=== PATIENT | female | born 1990 | race Caucasian/White ===

== ENCOUNTER 2018-03-15 17:50 | Emergency (ER) | payer SELFPAY ==
[~2018-03-15] VITALS: Ht 172.7 cm; Wt 70.3 kg
[~2018-03-15 17:50] MED LIST: TRAZODONE HCL50 MG PO; VYVANSE40 MG PO
[2018-03-15 18:07] VITALS: BP 111/74
[2018-03-15] MEDS ORDERED: Lidocaine 2% Visc 15ml soln ORAL ONE (18:15)
[2018-03-15] MEDS ORDERED: Mylanta II UD 30ml ORAL ONE (18:15)
[2018-03-15] MEDS ORDERED: Dicyclomine HCl 10mg/5ml oral soln ORAL ONE (18:15)
[2018-03-15 18:35] LABS: APPEARANCE,URINE CLEAR; BILIRUBIN, URINE NEGATIVE (NEGATIVE); COLOR,URINE PALE YELLOW; GLUCOSE, URINE (UA) NEGATIVE (NEGATIVE); KETONES,URINE NEGATIVE (NEGATIVE); LEUKOCYTE ESTERASE ,URINE NEGATIVE (NEGATIVE); NITRITE,URINE NEGATIVE (NEGATIVE); PH,URINE 8 (4.5-8.0); PROTEIN,URINE NEGATIVE (NEGATIVE); UROBILINOGEN,URINE NORMAL MG/DL (0.0-1.0)
[2018-03-15 19:19] LABS: EOSINOPHILS % (AUTO) 2.2 % (0.0-3.0); HEMATOCRIT 36.9 % (37.0-47.0); HEMOGLOBIN 12.1 G/DL (12.0-16.0); LYMPHOCYTES % (AUTO) 22.2 % (20.0-45.0); MEAN CORPUSCULAR VOLUME 94 FL (80-99); MONOCYTES % (AUTO) 8.1 % (1.0-10.0); NEUTROPHILS % (AUTO) 66.5 % (45.0-75.0); PLATELET COUNT 379 K/UL (150-450); RED BLOOD COUNT 3.92 M/UL (4.20-5.40); RED CELL DISTRIBUTION WIDTH 12.5 % (11.6-14.8)
[2018-03-15 19:42] LABS: ANION GAP 8 mmol/L (5-15); BLOOD UREA NITROGEN 9 mg/dL (7-18); CALCIUM 9.8 MG/DL (8.5-10.1); CARBON DIOXIDE 26 MMOL/L (21-32); CHLORIDE 106 MMOL/L (98-107); CREATININE 0.7 MG/DL (0.55-1.30); POTASSIUM 4.5 MMOL/L (3.5-5.1); SODIUM 139 MMOL/L (136-145)
[2018-03-15 19:46] LABS: ALANINE AMINOTRANSFERASE 26 U/L (12-78); ALBUMIN 3.7 G/DL (3.4-5.0); ALBUMIN/GLOBULIN RATIO 1.1 (1.0-2.7); ALKALINE PHOSPHATASE 83 U/L (46-116); ASPARTATE AMINO TRANSFERASE 17 U/L (15-37); BILIRUBIN,TOTAL 0.2 MG/DL (0.2-1.0)
[2018-03-15] MEDS ORDERED: PRILOSEC OTC20 MG ORAL (19:50)
--- NOTE | 2018-03-15 19:50 | Emergency Room Report ---
History of Present Illness General Chief Complaint: Abdominal Pain Source: Patient Present Illness HPI This is a 27-year-old who presents to the ER with epigastric pain for the past one day. Patient states that she thinks that she is due to her abdominal pain. The patient states that she has a regular periods and that her LMP was one month ago however she is quite physically able to have missed a month due to her regular menses. Patient states that there is no modifying factors and has not taken medication for her symptoms. Patient denies any nausea, vomiting, diarrhea, vaginal bleeding, sore throat, fever. Patient does state that she does have some acid reflux. Allergies: Coded Allergies: PENICILLINS (Verified Allergy, 01/19/13) Patient History Past Medical History: see triage record Past Surgical History: none Pertinent Family History: none Now: No : 0 Para: 0 Immunizations: UTD Reviewed Nursing Documentation: PMH: Agreed; PSxH: Agreed Nursing Documentation-PMH Past Medical History: No Stated History Review of Systems All Other Systems: negative except mentioned in HPI Physical Exam Vital Signs Date Time Temp Pulse Resp B/P (MAP) Pulse Ox O2 Delivery O2 Flow Rate FiO2 03/15/18 17:57 97.4 106 20 111/74 99 Room Air 97.3 Sp02 EP Interpretation: reviewed, normal General Appearance: no apparent distress, alert, GCS 15, non-toxic Head: normocephalic, atraumatic Eyes: bilateral eye normal inspection, bilateral eye PERRL ENT: hearing grossly normal, normal pharynx, no angioedema, normal voice Neck: full range of motion, supple/symm/no masses Respiratory: chest non-tender, lungs clear, normal breath sounds, speaking full sentences Cardiovascular #1: regular rate, rhythm, no edema Gastrointestinal: normal bowel sounds, soft, non-distended, no guarding, no rebound, tenderness - LUQ Genitourinary: no CVA tenderness Musculoskeletal: gait/station normal Neurologic: alert, oriented x3, responsive, motor strength/tone normal, sensory intact, speech normal Psychiatric: judgement/insight normal, memory normal, mood/affect normal, no suicidal/homicidal ideation Skin: normal color, no rash, warm/dry, well hydrated Medical Decision Making PA Attestation Dr. Posey my supervising physician with whom patient management has been discussed with. Diagnostic Impression: Primary Impression: Gastritis ER Course Pt. presents to the ED c/o abdominal pain. The patient was pleasant on exam however she was very combative and declined wanting any excessive workup stating that she does want to know she was . Patient states that she wanted UA hCG from the blood because she'll follow up if she is . Patient had left upper quadrant pain and I ordered a GI cocktail and some fluids for her but the patient declined and asked with IV debris removed. Patient stated that she went outside to call the phone several times and was combative with staff. Once the result came back negative the patient states she had a leave because she wanted to go to a meeting. Ddx considered but are not limited to viral syndrome, , appendicitis, diverticulitis, constipation, gastroenteritis, abdominal hernia, pancreatitis, cholecystitis, nephrolithiasis, and ovarian torsion. Vital signs: are WNL, pt. is afebrile H&PE are most consistent with gastritis ORDERS: CBC, CMP, UA and HCG negative. ED INTERVENTIONS: Patient declined GI cocktail and IV hydration DISCHARGE: At this time pt. is stable for d/c to home. Will provide printed patient care instructions, and any necessary prescriptions. Care plan and follow up instructions have been discussed with the patient prior to discharge. Laboratory Tests Test 03/15/18 18:13 03/15/18 18:25 Urine Color Pale yellow Urine Appearance Clear Urine pH 8 (4.5-8.0) Urine Specific Steele 1.015 (1.005-1.035) Urine Protein Negative (NEGATIVE) Urine Glucose (UA) Negative (NEGATIVE) Urine Ketones Negative (NEGATIVE) Urine Occult Blood Negative (NEGATIVE) Urine Nitrite Negative (NEGATIVE) Urine Bilirubin Negative (NEGATIVE) Urine Urobilinogen Normal MG/DL (0.0-1.0) Urine Leukocyte Esterase Negative (NEGATIVE) Urine HCG, Qualitative Negative (NEGATIVE) White Blood Count 12.0 K/UL (4.8-10.8) H Red Blood Count 3.92 M/UL (4.20-5.40) L Hemoglobin 12.1 G/DL (12.0-16.0) Hematocrit 36.9 % (37.0-47.0) L Mean Corpuscular Volume 94 FL (80-99) Mean Corpuscular Hemoglobin 30.9 PG (27.0-31.0) Mean Corpuscular Hemoglobin Concent 32.8 G/DL (32.0-36.0) Red Cell Distribution Width 12.5 % (11.6-14.8) Platelet Count 379 K/UL (150-450) Mean Platelet Volume 6.7 FL (6.5-10.1) Neutrophils (%) (Auto) 66.5 % (45.0-75.0) Lymphocytes (%) (Auto) 22.2 % (20.0-45.0) Monocytes (%) (Auto) 8.1 % (1.0-10.0) Eosinophils (%) (Auto) 2.2 % (0.0-3.0) Basophils (%) (Auto) 1.0 % (0.0-2.0) Sodium Level 139 MMOL/L (136-145) Potassium Level 4.5 MMOL/L (3.5-5.1) Chloride Level 106 MMOL/L (98-107) Carbon Dioxide Level 26 MMOL/L (21-32) Anion Gap 8 mmol/L (5-15) Blood Urea Nitrogen 9 mg/dL (7-18) Creatinine 0.7 MG/DL (0.55-1.30) Estimate Glomerular Filtration Rate > 60 mL/min (>60) Glucose Level 99 MG/DL (74-106) Calcium Level 9.8 MG/DL (8.5-10.1) Total Bilirubin 0.2 MG/DL (0.2-1.0) Aspartate Amino Transferase (AST) 17 U/L (15-37) Alanine Aminotransferase (ALT) 26 U/L (12-78) Alkaline Phosphatase 83 U/L (46-116) Total Protein 7.1 G/DL (6.4-8.2) Albumin 3.7 G/DL (3.4-5.0) Globulin 3.4 g/dL Albumin/Globulin Ratio 1.1 (1.0-2.7) Lipase 126 U/L (73-393) Human Chorionic Gonadotropin, Quant Pending Last Vital Signs Date Time Temp Pulse Resp B/P (MAP) Pulse Ox O2 Delivery O2 Flow Rate FiO2 03/15/18 18:07 97.3 20 111/74 99 Room Air 97.3 03/15/18 17:57 106 Status: unchanged Disposition: HOME, SELF-CARE Condition: Stable Scripts Omeprazole Magnesium (PRILOSEC OTC) 20 Mg Tablet.dr 20 MG ORAL DAILY for 14 Days, #14 TAB Prov: LARS VILLALOBOS 03/15/18 Referrals: NOT CHOSEN [facility]/MD,REFERRING (PCP) Patient Instructions: Gastritis, Adult Additional Instructions: Take medication as directed. Patient is to return for a recheck within 8-10 hours if symptoms persist or worsen. Patient instructed to stay well hydrated and to use a liquid diet and then progress to soft bland diet as tolerated before reverting back to a regular diet. Patient Education was given to the patient. Patient advised if irreretractible pain, rectal bleeding, or no BM to go to ER immediately. LARS VILLALOBOS March 15, 2018 19:50
[2018-03-15 19:55] VITALS: BP 118/71
[2018-03-15 19:58] VITALS: BP 118/71
== END 2018-03-15 19:58 | disposition home or self-care (01) ==
LOC: EMR 18:30
DX: K29.70 Gastritis, unspecified, without bleeding (principal); Z88.0 Allergy status to penicillin
CPT/HCPCS: 36415; 80053; 81003; 81025; 83690; 84702; 85025; 99283